=== PATIENT | male | born 1960 | race Caucasian/White ===

== ENCOUNTER 2017-05-25 21:54 | Emergency (ER) | payer SELFPAY ==
[~2017-05-25] VITALS: Ht 177.8 cm; Wt 103.2 kg
[~2017-05-25 21:54] MED LIST: LEVAQUIN750 MG PO; NORCO1 TA1 PO; PREDNISONE10 MG PO; ULTRAM50 M1 PO
[2017-05-25] MEDS ORDERED: GENTAMICIN15 ML/BTL OD (23:05)
[2017-05-25] MEDS ORDERED: (None)3.5 GM OD (23:05)
[2017-05-25 23:07] VITALS: BP 139/74
== END 2017-05-25 23:07 | disposition home or self-care (01) | DRG 125 ==
LOC: ED 21:54
DX: S05.01XA Injury of conjunctiva and corneal abrasion without foreign body, right eye, initial encounter (principal); X58.XXXA Exposure to other specified factors, initial encounter; Y93.89 Activity, other specified; Y92.009 Unspecified place in unspecified non-institutional (private) residence as the place of occurrence of the external cause

== ENCOUNTER 2017-06-09 17:58 | Emergency (ER) | payer SELFPAY ==
[~2017-06-09] VITALS: Ht 177.8 cm; Wt 101.8 kg
[~2017-06-09 17:58] MED LIST changes: +(None)3.5 GM OD; +GENTAMICIN15 ML/BTL OD
[2017-06-09] MEDS ORDERED: ZOFRAN4 MG/TAB PO (19:18)
[2017-06-09] MEDS ORDERED: LORTAB 7.57.5 MG PO (19:18)
[2017-06-09 19:24] VITALS: BP 137/75
== END 2017-06-09 19:35 | disposition home or self-care (01) | DRG 563 ==
LOC: ED 17:58
PROC: 2W3QX1Z Immobilization of Right Lower Leg using Splint (ICD-10-PCS; principal; 2017-06-09)
DX: S82.431A Displaced oblique fracture of shaft of right fibula, initial encounter for closed fracture (principal); W17.89XA Other fall from one level to another, initial encounter; W22.8XXA Striking against or struck by other objects, initial encounter; Y93.89 Activity, other specified; Y92.814 Boat as the place of occurrence of the external cause

== ENCOUNTER 2019-05-06 | Emergency (ER) | payer SELFPAY ==
[~2019-05-06] MED LIST changes: +LORTAB 7.57.5 MG PO; +ZOFRAN4 MG/TAB PO
[2019-05-06] MEDS ORDERED: LEVOTHYROXIN100 MCG PO (11:25)
[2019-05-06] MEDS ORDERED: CHERATUSSIN PO (12:48)
--- NOTE | 2019-05-13 10:24 | NUR ---
Notified patient of positive Covid test via telephone. Patient states he is feeling better, but patient is coughing frequently while talking. Advised patient to drink plenty of fluids and rest. Advised patient to follow up with PCP and to come back to ED with any urgent problems like SOB. Advised patient he must follow strict quarantine guidelines, and that he must stay home until cleared by DC. [facility] is aware of results and will be contacting patient today. Advised patient that he and his entire household must remain at home until cleared by the [facility]. Patient verbalizes understanding. Per patients request, results given to his PCP:
== END 2019-05-06 12:53 | disposition home or self-care (01) | DRG 195 ==
DX: J10.1 Influenza due to other identified influenza virus with other respiratory manifestations (principal); B97.29 Other coronavirus as the cause of diseases classified elsewhere

== ENCOUNTER 2020-04-04 15:25 | Inpatient (IN) | payer OTHER ==
[~2020-04-04] VITALS: Ht 177.8 cm; Wt 110.0 kg
[~2020-04-04 15:25] MED LIST changes: +CHERATUSSIN PO; +LEVOTHYROXIN100 MCG PO
--- NOTE | 2020-04-04 16:20 | NUR ---
PATIENT TO ROOM WITH A STEADY GAIT FOR BEDSIDE TRIAGE.
--- NOTE | 2020-04-04 16:31 | NUR ---
PT C/O LEFT SIDED CHEST PAIN WHEN COUGHING. MLP NOTIFIED. EKG COMPLETED.
[2020-04-04] MEDS ORDERED: ASPIRIN ENTERIC81 MG PO (16:57)
[2020-04-04 17:57] LABS: HEMATOCRIT 43.9 % (39.0-50.0); HEMOGLOBIN 14.9 g/dl (14.0-18.0); IMMATURE GRANULOCYTES 0.3 % (0.0-5.0); MEAN CELL VOLUME 87.5 fL CALC (80.0-100.0); MEAN CORPUSCULAR HGB 29.7 pG CALC (26.0-32.0); MEAN CORPUSCULAR HGB CONC 33.9 g/dL CAL (32.0-36.0); NEUT# 2.47 thou/uL (1.82-7.42); RED BLOOD COUNT 5.02 mill/uL (4.70-6.10); RED CELL DISTRI WIDTH 11.7 % (11.5-15.5)
[2020-04-04 18:14] LABS: ALBUMIN 4.4 g/dL (3.2-5.0); ALKALINE PHOSPHATASE 44 u/l (38-126); ANION GAP 12 (6-22 (CALC)); BILIRUBIN, TOTAL 0.7 mg/dL (0.0-1.4); BUN 22 mg/dL (8-23); BUN/CREATININE RATIO 19 (12-20 (CALC)); C-REACTIVE PROTEIN 1.7 mg/dL (0-0.9); CARBON DIOXIDE 33 mmol/l (22-30); CHLORIDE 88 mmol/l (95-108); CREATININE 1.1 mg/dL (0.7-1.3); GFR > 60 ML/MIN (>=60 (CALC)); GFR FOR AFR.AMER. > 60 ML/MIN (>=60 (CALC)); POTASSIUM 3.3 mmol/l (3.5-5.1); SGOT/AST 49 u/l (19-48); SODIUM 130 mmol/l (137-146); TOTAL PROTEIN 7.8 g/dL (6.3-8.2)
--- NOTE | 2020-04-04 18:18 | NUR ---
Reassessment of patient completed. No distress noted.
--- NOTE | 2020-04-04 18:45 | NUR ---
Reassessment of patient completed. No distress noted.
--- NOTE | 2020-04-04 19:30 | NUR ---
Reassessment of patient completed. No distress noted.
--- NOTE | 2020-04-04 20:30 | NUR ---
Reassessment of patient completed. No distress noted.
--- NOTE | 2020-04-04 21:25 | NUR ---
REPORT CALLED CHRISTY
[2020-04-04 21:30] VITALS: BP 151/75
--- NOTE | 2020-04-04 22:52 | NUR ---
PATIENT ADMITTED FROM ER VIA STRETCHER WITH ER STAFF IN ATTENDANCE. PATIENT ADMITTED TO ROOM 289 WITH COVID PNEUMONIA AND EXACERBATION OF COPD. PATIENT IS AWAKE ALERT AND ORIENTEDX3 WITH O2 VIA NASAL CANNULA IN PLACE AT 2LPM. O2 SAT-97%. PATIENT IS AMBULATORY BUT SOB WITH EXHERSION. PATIENT WITH IV SITE TO LAC-SITE IS HEALTHY WITH GOOD BLOOD RETURN. IVF NS HUNG AND INFUSING AT 100CC/HR. TELE MONITOR APPLIED AND NSR IN THE 'S. PATIENT MEDICATED WITH LOVENOX SQ ORDERED. PATIENT WITH MOSTLY NON-PRODUCTIVE COUGH. STATES FEVER AT HOME BUT DID NOT TAKE HIS TEMP-CHILLS OFF AND ON. LACK OF TASTE AND SMALL AND GENERALIZED BODY ACHES. LUNGS ARE DIMINISHED. ABD DISTENDED AND FIRM-STATES LAST BM WAS LAST SUNDAY 04/02. DENIES ANY DIFFICULTY WITH URINATION. NO PERIPHERAL EDEMA NOTED WITH WEAK PEDAL PULSES. PATIENT PLACED ON ISOLATION IN NEG PRESSURE ROOM FOR COVID. PATIENT STATES THAT HE ALSO HAD COVID LAST MAY. HAS NOT HAD COVID VACCINE YET. PATIENT PROVIDED WITH MEAL AND DRINK. ORIENTED PATIENT TO ROOM AND SURROUNDINGS. INSTRUCTED ON USE OF NURSE CALL LIGHT SYSTEM, TV REMOTE AND PHONE. SAETY PRECAUTIONS REINFORCED. SCD'S APPLIED ORDERED. CALL LIGHT IN REACH. WILL CONT TO MONITOR.
[2020-04-05 00:34] VITALS: BP 124/74
[2020-04-05 04:00] VITALS: BP 124/67
--- NOTE | 2020-04-05 04:00 | NUR ---
PATIENT RESTING IN BED AT THIS TIME-O2 VIA NASAL CANNULA IN PLACE. EYES ARE CLOASED. RESPS ARE EVEN AND UNLABORED. IVF NS PATENT AND INFUSING VIA LAC SITE AT 100CC/HR. SITE REMAINS HEALTHY. SCD'S IN PLACE. TELE [id number]. PATIENT ON ISOLATION IN NEG PRESSURE ROOM FOR COVID. CALL LIGHT IN REACH. WILL CONT TO MONITOR.
[2020-04-05 06:06] LABS: ALBUMIN 3.6 g/dL (3.2-5.0); ALKALINE PHOSPHATASE 34 u/l (38-126); ANION GAP 19 (6-22 (CALC)); BILIRUBIN, TOTAL 0.5 mg/dL (0.0-1.4); BUN 21 mg/dL (8-23); BUN/CREATININE RATIO 23 (12-20 (CALC)); CARBON DIOXIDE 31 mmol/l (22-30); CHLORIDE 85 mmol/l (95-108); CREATININE 0.9 mg/dL (0.7-1.3); GFR > 60 ML/MIN (>=60 (CALC)); GFR FOR AFR.AMER. > 60 ML/MIN (>=60 (CALC)); POTASSIUM 3.5 mmol/l (3.5-5.1); SGOT/AST 38 u/l (19-48); SODIUM 131 mmol/l (137-146); TOTAL PROTEIN 6.5 g/dL (6.3-8.2)
[2020-04-05 06:18] LABS: HEMOGLOBIN 14.3 g/dl (14.0-18.0); MEAN CELL VOLUME 86.8 fL CALC (80.0-100.0); MEAN CORPUSCULAR HGB 29.5 pG CALC (26.0-32.0); NEUT# 0.7 thou/uL (1.82-7.42); RED BLOOD COUNT 4.84 mill/uL (4.70-6.10); RED CELL DISTRI WIDTH 11.7 % (11.5-15.5)
--- NOTE | 2020-04-05 06:20 | NUR ---
RECIEVED CALL FROM BESSY PEREZ WITH [id number], WILL CALL DR. SEVERINO WITH RESULT SOON THE REST OF LAB RESULTS ARE AVAILABLE. WILL CONT TO MONITOR.
--- NOTE | 2020-04-05 07:20 | NUR ---
REPORT RECEIVED FROM DUSTIN WHITMAN
[2020-04-05 09:04] VITALS: BP 147/88
--- NOTE | 2020-04-05 09:05 | NUR ---
PT RESTING IN SEMI FOWLERS POSITION,A&O X3;VS OBTAINED AND ASSESSMENT COMPLETED;PT DENIES ANY CURRENT PAIN OR DISCOMFORTS,PAIN SCALE AND REPORTING EDUCATED;RESPIRATIONS EVEN AND UNLABORED ON O2 @ 2L VIA NC-PT IS NOT HOME OXYGEN DEPENDENT;DIMINISHED LUNG SOUNDS NOTED WITH PRODUCTIVE COUGH AT TIMES;SMALL/THIN CLEAR SPUTUM;I.S. AT BEDSIDE AND PT EDUCATED ON USE, ENCOURAGED USE 10X PER HOUR;ABDOMEN DISTENDED/SOFT ON PALPATION AND ACTIVE IN ALL 4 QUADRANTS;STRONG PEDAL PULSES;SKIN INTACT;TELE MONITORING IN PLACE;#20G TO LAC INFUSING NS @ 100ML/HR,SITE APPEARS HEALTHY;PT REMAINS IN AIR/CONTACT PRECAUTIONS DUE TO COVID19 DX; PT DENIES ANY ADDITIONAL NEEDS AT THIS TIME AND IS ENCOURAGED TO CALL FOR ASSISTANCE IF NEEDED;FALL PRECAUTIONS IN PLACE WITH BED IN THE LOWEST POSITION AND CALL LIGHT IN REACH;WILL CONTINUE TO MONITOR
[2020-04-05 10:40] VITALS: BP 149/76
--- NOTE | 2020-04-05 11:20 | NUR ---
PT RESTING IN SEMI FOWLERS POSITION TALKING ON THE PHONE;RESPIRATIONS EVEN AND UNLABORED ON O2 @ 2L VIA NC;PT DENIES ANY CURRENT PAIN OR DISCOMFORTS;TELE MONITORING IN PLACE;IV FLUIDS INFUSING WITH EASE TO LAC;ALL SAFETY PRECAUTIONS REMAIN IN PLACE WITH BED IN THE LOWEST POSITION AND CALL LIGHT IN REACH;WILL CONTINUE TO MONITOR
--- NOTE | 2020-04-05 12:30 | NUR ---
IV SITE TO LAC REMOVED WITH CATHETER INTACT DUE TO PT REQUEST.
--- NOTE | 2020-04-05 13:00 | NUR ---
MULTIPLE PLACES TO PLACE NEW IV SITE, PT DECLINES SITE TO BE STARTED IN HAND OR FOREARM;PT REQUESTS SITE TO BE PLACED BACK INTO LAC;#22G STARTED TO LAC ON 1ST ATTEMPT BY THIS WRITTER AND NS RE-STARTED PER ORDER;PT TOLERATED WELL;WILL CONTINUE TO MONITOR
[2020-04-05 14:50] VITALS: BP 146/79
--- NOTE | 2020-04-05 16:00 | NUR ---
PT RESTING IN SEMI FOWLERS POSITION WATCHING TV;RESPIRATIONS EVEN AND UNLABORED ON O2 @ 2L VIA NC;PT DENIES ANY CURRENT PAIN OR DISCOMFORTS;TELE MONITORING IN PLACE;IV FLUIDS INFUSING WELL TO LAC AND ABX STARTED PER ORDER;PT DENIES ANY ADDITIONAL NEEDS AT THIS TIME;ENCOURAGED TO CALL FOR ASISSTANCE IF NEEDED;CALL LIGHT IN REACH;WILL CONTINUE TO MONITOR
[2020-04-05 19:00] VITALS: BP 143/65
--- NOTE | 2020-04-05 20:00 | NUR ---
PATIENT RESTING IN BED AT THIS TIME-AWAKE ALERT AND ORIENTEDX3. O2 VIA NASAL CANNULA IN PLACE. O2 SAT IS 94%. IVF NS PATENT AND INFUSING VIA LAC SITE ORDERED. PATIENT ON ISOLATION IN NEG PRESSURE ROOM FOR COVID. TELE MONITOR IN PLACE. ENCOURAGED USE OF IS Q1H WHILE AWAKE IN REPS OF 10-NEEDS ENCOURAGEMENT. ENCOURAGED PRONING WHEN POSSIBLE BUT PATIENT STATES THAT HE CAN'T DO THAT. REFUSING TO WEAR SCD'S AT THIS TIME. SAFETY PRECAUTIONS REINFORCED. CALL LIGHT IN REACH. WILL CONT TO MONITOR.
[2020-04-06] VITALS (7 sets, daily range): BP systolic 102–151; BP diastolic 57–85
--- NOTE | 2020-04-06 00:30 | NUR ---
PATIENT RESTING IN BED AT THIS TIME WITH O2 VIA NASAL CANNULA IN PLACE.POSITIONED ON RIGHT SIDE WITH EYES CLOSED. RESPS ARE EVEN AND UNLABORED. IVF PATNET AND INFUSING VIA LAC SITE. CALL LIGHT IN REACH. WILL CONT TO MONITOR.
--- NOTE | 2020-04-06 04:30 | NUR ---
PATIENT RESTING IN BED-PATIENT WITH TEMP OF 100.5. PATIENT IS HAVING CHILLS-MEDICATED WITH TYLENOL 650MG PO FOR TEMP. ATTEMPTED TO TAKE BLANKET FROM PATIENT BUT HE REFUSED. ALSO STATED THAT "THIS OXYGEN ISN'T DOING ANYTHING FOR ME". ASSURED THE PATIENT THAT THE O2 WAS INDEED HELPING WITH HIS O2 SATURATION LEVELS. PATIENT IS ALSO RESISTANT TO USING THE IS, SCD'S OR PRONING. O2 VIA NASAL CANNULA IN PLACE AT2LPM WITH O2 SAT OF 95F%. IVF PATENT AND INFUSING ORDERED. CALL LIGHT IN REACH, WILL CONT TO MONITOR.
[2020-04-06 05:54] LABS: HEMATOCRIT 39.4 % (39.0-50.0); HEMOGLOBIN 13.3 g/dl (14.0-18.0); IMMATURE GRANULOCYTES 0.2 % (0.0-5.0); MEAN CELL VOLUME 88.7 fL CALC (80.0-100.0); MEAN CORPUSCULAR HGB CONC 33.8 g/dL CAL (32.0-36.0); NEUT# 2.7 thou/uL (1.82-7.42); RED BLOOD COUNT 4.44 mill/uL (4.70-6.10); RED CELL DISTRI WIDTH 11.6 % (11.5-15.5)
[2020-04-06 05:58] LABS: ALBUMIN 3.6 g/dL (3.2-5.0); ALKALINE PHOSPHATASE 34 u/l (38-126); ANION GAP 13 (6-22 (CALC)); BILIRUBIN, TOTAL 0.6 mg/dL (0.0-1.4); BUN 20 mg/dL (8-23); BUN/CREATININE RATIO 22 (12-20 (CALC)); CARBON DIOXIDE 30 mmol/l (22-30); CREATININE 0.9 mg/dL (0.7-1.3); GFR > 60 ML/MIN (>=60 (CALC)); GFR FOR AFR.AMER. > 60 ML/MIN (>=60 (CALC)); POTASSIUM 3.4 mmol/l (3.5-5.1); SGOT/AST 36 u/l (19-48); SODIUM 136 mmol/l (137-146); TOTAL PROTEIN 6.4 g/dL (6.3-8.2)
[2020-04-06 06:00] LABS: CHLORIDE 96 mmol/l (95-108)
--- NOTE | 2020-04-06 07:15 | NUR ---
REPORT RECEIVED FROM DUSTIN WHITMAN
--- NOTE | 2020-04-06 08:30 | NUR ---
PT RESTING IN SEMI FOWLERS POSITION,A&O X3;VS OBTAINED AND ASSESSMENT COMPLETED;PT DENIES ANY CURRENT PAIN OR DISCOMFORTS,PAIN SCALE AND REPORTING EDUCATED;RESPIRATIONS EVEN AND UNLABORED ON O2 @ 2L VIA NC-PT IS NOT HOME DEPENDENT;DIMINISHED LUNG SOUNDS WITH NON-PRODUCTIVE COUGH;I.S. AT BEDSIDE AND PT EDUCATED ON USE,ENCOURAGED USE 10X PER HOUR;PT INSTRUCTED ON THE IMPORTANCE OF AMBULATION AND PRONING;ABDOMEN DISTENDED/SOFT ON PALPATION AND ACTIVE IN ALL 4 QUADRANTS;STRONG PEDAL PULSES;SKIN INTACT;TELE MONITORING IN PLACE;#22G TO LAC INFUSING NS @ 50ML/HR,SITE APPEARS HEALTHY;PT REMAINS IN AIR/CONTACT PRECAUTIONS DUE TO COVID19 DX;PT DENIES ANY ADDITIONAL NEEDS AND IS ENCOURAGED TO CALL FOR ASSISTANCE IF NEEDED;FALL PRECAUTIONS IN PLACE WITH BED IN THE LOWEST POSITION AND CALL LIGHT IN REACH;WILL CONTINUE TO MONITOR
--- NOTE | 2020-04-06 10:50 | NUR ---
AT BEDSIDE DISCUSSING POC.
--- NOTE | 2020-04-06 12:30 | NUR ---
PT OOB RESTING IN RECLINER;RESPIRATIONS EVEN AND UNLABORED;PT DENIES ANY CURRENT PAIN OR NEEDS;ROBITUSSIN AC PROVIDED PER REQUEST;IV FLUIDS INFUSING WELL TO LAC PER ORDER;TELE MONITORING IN PLACE;PT DENIES ANY ADDITIONAL NEEDS AT THIS TIME;ENCOURAGED TO CALL FOR ASSISTANCE IF NEEDED;CALL LIGHT IN REACH;WILL CONTINUE TO MONITOR
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
--- NOTE | 2020-04-06 16:20 | NUR ---
PT APPEARS TO BE RESTING IN SEMI FOWLERS POSITION;RESPIRATIONS EVEN AND UNLABORED ON O2 @ 2L VIA NC;NO S/S OF DISTRESS NOTED;TELE MONITORING IN PLACE;IV SITE REMAINS PATENT INFUSING NS WITH EASE PER ORDER;ALL SAFETY PRECAUTIONS REMAIN IN PLACE WITH CALL LIGHT IN REACH;WILL CONTINUE TO MONITOR
[2020-04-07 03:58] VITALS: BP 131/72
[2020-04-07 05:55] LABS: ANION GAP 8 (6-22 (CALC)); BUN 19 mg/dL (8-23); BUN/CREATININE RATIO 24 (12-20 (CALC)); CARBON DIOXIDE 31 mmol/l (22-30); CHLORIDE 99 mmol/l (95-108); CREATININE 0.8 mg/dL (0.7-1.3); GFR > 60 ML/MIN (>=60 (CALC)); GFR FOR AFR.AMER. > 60 ML/MIN (>=60 (CALC)); MAGNESIUM 1.9 mg/dL (1.6-2.3); POTASSIUM 3.6 mmol/l (3.5-5.1); SODIUM 135 mmol/l (137-146)
[2020-04-07 05:58] LABS: HEMATOCRIT 35.8 % (39.0-50.0); HEMOGLOBIN 11.7 g/dl (14.0-18.0); MEAN CELL VOLUME 90.9 fL CALC (80.0-100.0); MEAN CORPUSCULAR HGB 29.7 pG CALC (26.0-32.0); MEAN CORPUSCULAR HGB CONC 32.7 g/dL CAL (32.0-36.0); RED BLOOD COUNT 3.94 mill/uL (4.70-6.10); RED CELL DISTRI WIDTH 11.9 % (11.5-15.5)
--- NOTE | 2020-04-07 06:59 | NUR ---
PT HAS A CRITICAL WBC OF 2.0 DOBIE MAN GRACIA CALLED. LEFT VOICEMAIL
--- NOTE | 2020-04-07 09:54 | NUR ---
DR ART AND Earlene FERRERA APRN AT BEDSIDE
[2020-04-07 09:56] VITALS: BP 136/78
--- NOTE | 2020-04-07 09:56 | NUR ---
PT SITTING IN BED. A&O X3. NO DISTRESS NOTED. O2 VIA NC @ 2L IN PLACE. PT DENIES ANY PAIN AT THIS TIME. #22 LAC INFUSING PER MAR ORDERS. CLEAR/DIMINISHED BREATH SOUNDS UPON AUSCULTATION. ASSESSMENT COMPLETED. DISCUSSED POC. CALL LIGHT LEFT WITHIN REACH.
[2020-04-07 11:15] VITALS: BP 135/68
--- NOTE | 2020-04-07 13:42 | NUR ---
PT SITTING UP IN CHAIR. NO DISTRESS OR NEEDS AT THIS TIME. CALL LIGHT LEFT WITHIN REACH.
[2020-04-07 15:10] VITALS: BP 117/69
--- NOTE | 2020-04-07 15:44 | NUR ---
PT SITTING IN CHAIR. NO DISTRESS OR NEEDS AT THIS TIME. CALL LIGHT WITHIN REACH
[2020-04-07 20:15] VITALS: BP 122/74
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
--- NOTE | 2020-04-07 20:55 | NUR ---
PT IVPUMP SOUNDING, HE CALLED TO REPORT IT. I ENTERED THE ROOM TO STOP THE PUMP FROM SOUNDING, PT STATED, "THERE SHE IS." SOUNDING VERY JOVIAL. I ASKED IF THERE WAS ANYTHING ELSE THAT I COULD GET HIM, HE DENIED ANY NEEDS. HE IS SITTING UPRIGHT EATING PUDDING. NO S/O DISTRESS AND PT SOUNDED TALKATIVE AND PLEASANT. I ENCOURAGED HIM TO CALL ANY NEEDS ARISE, HE VERBALIZED UNDERSTANDING. CALL LIGHT IS W/IN REACH.
[2020-04-08 00:10] VITALS: BP 138/81
[2020-04-08 04:00] VITALS: BP 139/73
--- NOTE | 2020-04-08 05:35 | NUR ---
PT SLEEPING, NO S/O DISTRESS. IVPUMP CLEARED AT THIS TIME.
[2020-04-08 05:38] LABS: ALBUMIN 2.9 g/dL (3.2-5.0); ALKALINE PHOSPHATASE 31 u/l (38-126); ANION GAP 8 (6-22 (CALC)); BILIRUBIN, TOTAL 0.5 mg/dL (0.0-1.4); BUN 16 mg/dL (8-23); BUN/CREATININE RATIO 23 (12-20 (CALC)); C-REACTIVE PROTEIN 2.5 mg/dL (0-0.9); CARBON DIOXIDE 30 mmol/l (22-30); CHLORIDE 101 mmol/l (95-108); CREATININE 0.7 mg/dL (0.7-1.3); GFR > 60 ML/MIN (>=60 (CALC)); GFR FOR AFR.AMER. > 60 ML/MIN (>=60 (CALC)); POTASSIUM 3.9 mmol/l (3.5-5.1); SGOT/AST 35 u/l (19-48); SODIUM 135 mmol/l (137-146); TOTAL PROTEIN 5.4 g/dL (6.3-8.2)
[2020-04-08 05:59] LABS: HEMATOCRIT 35.4 % (39.0-50.0); HEMOGLOBIN 11.6 g/dl (14.0-18.0); IMMATURE GRANULOCYTES 0.7 % (0.0-5.0); MEAN CELL VOLUME 90.1 fL CALC (80.0-100.0); MEAN CORPUSCULAR HGB 29.5 pG CALC (26.0-32.0); MEAN CORPUSCULAR HGB CONC 32.8 g/dL CAL (32.0-36.0); NEUT# 0.5 thou/uL (1.82-7.42); RED BLOOD COUNT 3.93 mill/uL (4.70-6.10); RED CELL DISTRI WIDTH 11.7 % (11.5-15.5)
[2020-04-08 10:30] VITALS: BP 133/72
--- NOTE | 2020-04-08 12:00 | NUR ---
PATIENT AWAKE AND ALERT. MD SWITCHED FROM LOVNOX TO ELIQUIS
[2020-04-08 15:00] VITALS: BP 135/78
--- NOTE | 2020-04-08 16:00 | NUR ---
PATIENTIS AWAKE AND ALERT. NO CHANGES IN STSTUS AT THIS TIME
[2020-04-08 19:35] VITALS: BP 145/62
--- NOTE | 2020-04-08 21:00 | NUR ---
PATIENT RESTING IN BED AT THIS TIMEAWAKE ALERT AND ORIENTEDX3 WITH O2 VIANASAL CANNULA IN PLACE. O2 SAT IS 97% AT THIS TIME. TELE MONITOR IN PLACE. PATIENT WITH PRODUCTIVE COUGH SPITTING UP THIN RIZZO SECREATIONS. PROVIDED WITH EMESIS BAG FOR SECREATIONS. IVF PATENT AND INFUSING VIA LAC SITE ORDERED. AZITHROMYCIN HUNG ORDERED. REINFORCED TEACHING REGUARDING USE OF IS Q1H WHILE AWAKE IN REPS OF 10 AND ALSO REGUARDING TRYING TO LAY PRONE AND PATIENT IS NOT INTERESTED IN MY TEACHING. STATES THAT NOBODY ELSE "BOTHERS HIM ABOUT THIS". STATES THAT HE IS GOING HOME TOMORROW PROBABLY WITH O2. LUNGS ARE DIMINISHED RADHAMES. PATIENT IS ON ISOLATION IN NEG PRESSURE ROOM FOR COVID. STATES THAT HE HAD NORMAL BM TODAY. DENIES ANY DIFFICULTY WITH URINATION. SAFETY PRECAUTIONS REINFORCED. CALL LIGHT IN REACH. WILL CONT TO MONITOR.
[2020-04-09 00:25] VITALS: BP 164/71
--- NOTE | 2020-04-09 01:12 | NUR ---
PATIENT RESTING IN BED AT THIS TIME WITH O2 VIA NASAL CANNULA IN PLACE. EYES ARE CLOSED. RESPS ARE EVEN AND UNLABORED. TELE MONITOR IN PLACE. IVF PATENT AND INFUSING VIA LAC SITE ORDERED. CALL LIGHT IN REACH. WILL CONT TO MONITOR.
--- NOTE | 2020-04-09 04:13 | NUR ---
PATIENT RESTING IN BED WITH O2 VIA NASAL CANNULA IN PLACE. EYES ARE CLOSED. RESPS ARE EVEN AND UNLABORED. TELE MONITOR IN PLACE. CALL LIGHT IN REACH. WILL CONT TO MONITOR.
[2020-04-09 04:15] VITALS: BP 159/79
[2020-04-09 06:07] LABS: ALBUMIN 2.9 g/dL (3.2-5.0); ALKALINE PHOSPHATASE 29 u/l (38-126); ANION GAP 8 (6-22 (CALC)); BILIRUBIN, TOTAL 0.5 mg/dL (0.0-1.4); BUN 17 mg/dL (8-23); BUN/CREATININE RATIO 24 (12-20 (CALC)); CARBON DIOXIDE 30 mmol/l (22-30); CHLORIDE 102 mmol/l (95-108); CREATININE 0.7 mg/dL (0.7-1.3); GFR > 60 ML/MIN (>=60 (CALC)); GFR FOR AFR.AMER. > 60 ML/MIN (>=60 (CALC)); POTASSIUM 4.1 mmol/l (3.5-5.1); SGOT/AST 47 u/l (19-48); SODIUM 136 mmol/l (137-146); TOTAL PROTEIN 5.5 g/dL (6.3-8.2)
[2020-04-09 06:14] LABS: HEMATOCRIT 37.2 % (39.0-50.0); HEMOGLOBIN 11.9 g/dl (14.0-18.0); IMMATURE GRANULOCYTES 0.5 % (0.0-5.0); MEAN CELL VOLUME 90.7 fL CALC (80.0-100.0); NEUT# 0.9 thou/uL (1.82-7.42); RED BLOOD COUNT 4.1 mill/uL (4.70-6.10); RED CELL DISTRI WIDTH 11.7 % (11.5-15.5)
--- NOTE | 2020-04-09 06:15 | NUR ---
RECIEVED CALL FROM BRANDIE IN LAB-WBC-2.0. TREADING UP. WILL CONT TO MONITOR.
[2020-04-09 08:07] VITALS: BP 135/68
--- NOTE | 2020-04-09 08:07 | NUR ---
PT SITTING IN CHAIR. A&O X3. NO DISTRESS NOTED. NO O2 IN PLACE AT THIS TIME, PER PT "I DON'T LIKE THE MACHINE (IS DEVICE) I PREFER TO DO THIS INSTEAD". SUSTAINING 90-91%. PT ENCOURAGED TO REAPPLY O2. CLEAR DIMINISHED BREATH SOUNDS UPON AUSCULTATION. IVF INFUSING PER MAR. CELL EFFICIENCY SUPERVISOR IN PLACE. ASSESSMENT COMPLETED. DISCUSSED POC. CALL VU AGARWAL.
--- NOTE | 2020-04-09 10:20 | NUR ---
DR SEVERINO AND Greta CHERRY AT BEDSIDE
[2020-04-09 10:30] VITALS: BP 134/75
[2020-04-09] MEDS ORDERED: DEXAMETHASON6 MG PO (10:49)
[2020-04-09] MEDS ORDERED: AZITHROMYCIN500 MG PO (10:49)
--- NOTE | 2020-04-09 10:59 | NUR ---
PT AMBULATING IN ROOM VIA ROOM AIR. O2 SUSTAINING 91-93%. RESULTS GIVEN TO Greta BASILIO AND DR SEVERINO
[2020-04-09 15:00] VITALS: BP 133/72
--- NOTE | 2020-04-09 15:59 | NUR ---
PT SITTING IN CHAIR. NO DISTRESS NOTED, REMAINS ON ROOM AIR SUSTAINING 91-93%. CALL LIGHT WITHIN REACH.
--- NOTE | 2020-04-09 17:10 | NUR ---
IV REMOVED. INTACT UPON REMOVAL. D/C INSTRUCTIONS GIVEN.
--- NOTE | 2020-04-09 17:41 | NUR ---
Discharge instructions given. Patient verbalizes understanding of same. Discharged in stable condition via Wheelchair to Home with staff. All belongings sent with pt. Pt encouraged to return if new or worsening symptoms arise
[2020-04-10] MEDS ORDERED: DEXAMETHASON6 MG PO (16:50)
[2020-04-10] MEDS ORDERED: AZITHROMYCIN500 MG PO (16:50)
--- NOTE | 2020-04-12 14:37 | NUR ---
Pneumonia post discharge follow up call completed 04/12/20. Pt. states he is doing well, improving daily. No fever, chills. SOB with excertion but resolves quickly when at rest. Pt. has had contact with PCP and is awaiting appt date. Discharge meds taken without issue. No questions or issues expressed by patient.
== END 2020-04-09 17:41 | disposition home or self-care (01) | DRG 177 ==
LOC: ED 15:25 → ED-I 20:07 → ED 20:12 → MS2 20:13
PROVIDERS: Nurse Practitioner; Physician Assistant; ADMIT Internal Medicine; ATTEND Internal Medicine
PROC: XW033E5 Introduction of Remdesivir Anti-infective into Peripheral Vein, Percutaneous Approach, New Technology Group 5 (ICD-10-PCS; principal; 2020-04-05)
DX: U07.1 COVID-19 (principal); J12.82 Pneumonia due to coronavirus disease 2019; E87.1 Hypo-osmolality and hyponatremia; R09.02 Hypoxemia; M79.10 Myalgia, unspecified site; E87.6 Hypokalemia; D70.9 Neutropenia, unspecified; E03.9 Hypothyroidism, unspecified; Z86.16 Personal history of COVID-19
CPT/HCPCS: J1650; Q9967

== ENCOUNTER 2022-06-20 07:59 | Day surgery (SDC) | payer OTHER ==
[~2022-06-20] VITALS: Ht 175.3 cm; Wt 99.8 kg
[~2022-06-20 07:59] MED LIST changes: +ABILIFY10 MG PO; +ASPIRIN ENTERIC81 MG PO; +AZITHROMYCIN500 MG PO; +DEXAMETHASON6 MG PO; +ECK ANTACID1 CHW PO; +HYDROCHLOROT25 MG PO; +LIPITOR40 M1 PO; +PAROXETINE10 MG PO; +VENTOLIN HFA108 MCG IN; +VITAMIN D3 1.251 CAP PO
[2022-06-20 09:54] VITALS: BP 126/72
== END 2022-06-20 09:50 | disposition home or self-care (01) | DRG 395 ==
LOC: ENDO 07:59 → ORM 09:15 → ENDO 09:50 → ORM 11:15
PROVIDERS: ATTEND Surgery
PROC: 0DBP8ZX Excision of Rectum, Via Natural or Artificial Opening Endoscopic, Diagnostic (ICD-10-PCS; principal; 2022-06-20)
DX: D12.8 Benign neoplasm of rectum (principal); K57.30 Diverticulosis of large intestine without perforation or abscess without bleeding; K64.4 Residual hemorrhoidal skin tags; E11.9 Type 2 diabetes mellitus without complications; M62.08 Separation of muscle (nontraumatic), other site; F32.A Depression, unspecified; F41.9 Anxiety disorder, unspecified